=== PATIENT | male | born 1955 | race Caucasian/White ===

== ENCOUNTER → 2020-11-16 10:29 | Emergency (ER) | payer MEDICARE, SELFPAY | END | disposition left against medical advice (07) | PROVIDERS: Emergency Provider Internal Medicine Hematology & Oncology | DX: Z53.21 Procedure and treatment not carried out due to patient leaving prior to being seen by health care provider (principal) | CPT/HCPCS: 99199 ==

== ENCOUNTER 2021-01-07 13:02 | Outpatient (CLI) | payer MEDICARE, SELFPAY ==
--- NOTE | ~2021-01-07 | CT_ITS ---
EXAMINATION: CT lung screening DATE: 01/07/2021 13:31 INDICATION: Personal history of tobacco dependence, current smoker with 75 pack year history TECHNIQUE: Computed tomography (CT) of the chest was performed without intravenous contrast. The dose -length product (DLP) was 88.71 mGy-cm. Automated exposure control and iterative reconstruction techn ique were employed. COMPARISON: None FINDINGS: There is mild emphysema. The lungs are free of acute opacities. There is no pleural effusio n or pneumothorax. No pathologically enlarged thoracic lymph nodes are identified. The heart size is normal. Calcified coronary artery atherosclerosis is noted. No suspicious pulmonary nodules are ident ified. There is moderate thoracic spondylosis. IMPRESSION: 1. Lung-RADS category 1: Negative. Continue annual screening with noncontrast low-dose chest CT in 12 months. Reviewed, dictated and finalized at location A. IMPRESSION: 1. Lung-RADS category 1: Negative. Continue annual screening with noncontrast l ow-dose chest CT in 12 months.
--- NOTE | ~2021-01-07 | CT_ITS ---
EXAMINATION: CT abdomen pelvis w con INDICATION: Nausea, constipation, and weight loss TECHNIQUE: Computed tomographic images of the abdomen and pelvis were obtained after the administrati on of 100 cc of Omnipaque 350 intravenous contrast. The dose-length product (DLP) was 291.87 mGy-cm. Automated exposure control and iterative reconstruction technique were employed. COMPARISON: 03/06/2017 FINDINGS: The lung bases are clear. The heart size is normal. The gallbladder is surgically absent. T he liver, spleen, pancreas, and adrenal glands are normal. Cysts of the kidneys measure up to 2.9 cm on the left. A circumaortic left renal vein is noted. There is calcified atherosclerosis of the aorta and many of the other arteries. No pathologically enlarged abdominal or pelvic lymph nodes are ident ified. A moderate volume of colonic stool is present. Colonic diverticulosis is present without evide nce of diverticulitis. There is severe lumbar spondylosis. IMPRESSION: 1. No CT correlate for the patient's symptoms. Reviewed, dictated and finalized at location A.
== END 2021-01-07 13:03 | disposition home or self-care (01) ==
LOC: ANHIMG 13:08
PROVIDERS: PCP Internal Medicine; Visit Provider Physician Assistant
DX: Z12.2 Encounter for screening for malignant neoplasm of respiratory organs (principal); R10.32 Left lower quadrant pain; Z87.891 Personal history of nicotine dependence; M47.816 Spondylosis without myelopathy or radiculopathy, lumbar region
CPT/HCPCS: 71250; 71271; 74177; Q9967

== ENCOUNTER 2021-03-17 08:01 | Outpatient (CLI) | payer MEDICARE, SELFPAY ==
--- NOTE | ~2021-03-17 | CT_ITS ---
EXAMINATION: CT abdomen pelvis w con DATE: 03/17/2021 08:32 INDICATION: Unspecified abdominal pain. TECHNIQUE: Computed tomography (CT) of the abdomen and pelvis was performed with 100 mL Omnipaque 350 intravenous contrast. Automated exposure control and iterative reconstruction technique were employe d. The dose-length product was 458.88 mGy-cm. COMPARISON: CT abdomen and pelvis 01/07/2021, 03/06/2017 FINDINGS: The visualized portions of the lung bases demonstrate minimal atelectasis. No pleural effus ion. The heart size is normal. No pericardial effusion. The liver is normal. There are changes of cho lecystectomy. There is a 6 mm cyst in the spleen. A calcification in the pancreas is consistent with chronic pancreatitis. The right adrenal gland is normal. There is chronic thickening of left adrenal gland, likely benign. There are cysts in the kidneys measuring up to 2.6 cm on the left. There is div erticulosis of the colon without evidence of diverticulitis. The appendix is normal. There are no pat hologically enlarged lymph nodes. There is no free intraperitoneal fluid. The prostate is mildly enla rged. There is dextroscoliosis and severe spondylosis of lumbar spine. IMPRESSION: 1. No etiology for the patient's symptoms. Reviewed, dictated and finalized at location B. ROL CHEMIST
[2021-03-17 08:26] LABS: Estimated Glomerular Filt Rate > 60
== END 2021-03-17 08:02 | disposition home or self-care (01) ==
LOC: ANHIMG 08:02
PROVIDERS: PCP Physician Assistant; Visit Provider Physician Assistant
DX: R10.9 Unspecified abdominal pain (principal)
CPT/HCPCS: 74177; Q9967

== ENCOUNTER 2021-04-26 00:32 | Day surgery (SDC) | payer MEDICARE, SELFPAY ==
[2021-04-15 15:34] VITALS: BMI 17.9
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
[2021-04-26 12:29] VITALS: BP 130/53; PULSE 66; RESP 18; TEMP 36.5; O2SAT 98
[2021-04-26] MEDS: LACTATED RINGERS 1,000 ML 150 ML IV CONT (12:40)
--- NOTE | 2021-04-26 12:51 | P.PNAN_ITS ---
Anes - Initial Pre Proc Eval Procedure: Operation Date: 04/26/21 13:30 Proposed Procedures p Esophagogastroduodenoscopy & Colonoscopy - Woo Paula MD Date/Time: 04/26/21 12:51 Surgeon: Woo Paula MD Pre Op Diagnosis: abnormal weight loss, nausea Patient Data Age: 66 Gender: M Height: 1.93 m Weight: 71.8 kg Last Vital Signs Temp 36.5 C 04/26/21 12:29 Pulse 66 04/26/21 12:29 Resp 18 04/26/21 12:29 BP 130/53 L 04/26/21 12:29 Pulse Ox 98 04/26/21 12:29 Allergies Allergy/AdvReac Type Severity Reaction Status Date / Time No Known Drug Allergies Allergy Unknown [email or web address] Verified 04/26/21 12:27 Home Medications Medication Instructions Recorded Confirmed Type atorvastatin 40 mg tablet 40 mg PO DAILY 01/01/21 04/15/21 History carbidopa 25 mg-levodopa 100 mg 1 tablet PO QID 01/01/21 04/15/21 History disintegrating tablet cholecalciferol (vitamin D3) 10 10 mcg PO DAILY 01/01/21 04/15/21 History mcg (400 unit) capsule lisinopril 20 mg tablet 20 mg PO DAILY 01/01/21 04/15/21 History omeprazole 40 mg capsule,delayed 40 mg PO DAILY 01/01/21 04/15/21 History release vitamin B complex 1 tablet PO DAILY 01/01/21 04/15/21 History gabapentin 300 mg capsule 300 mg PO TID #90 cap 04/09/21 04/15/21 Rx sucralfate [Carafate] 1 g PO QID 04/15/21 04/15/21 History hyoscyamine sulfate 0.125 mg tablet 0.125 mg PO QID PRN #120 tablet 04/19/21 Rx Patient hx anesthesia problems: none Family hx anesthesia problems: none Results Review: All pre-operative results and documents have been reviewed as part of the pre-operative evaluation. [facility] Past Medical History Medical History (Updated 04/26/21 @ 07:42 by Jonathan Khalil DO) Emphysema lung Hyperlipidemia Hypertension Parkinsons disease Family History Family History Father Hypertension Cancer Mother Cancer Sibling Asthma Social History Social History Smoking packs per day: 1.5 Smoking cigarettes per day: 30.0 Years smoked: 45 Smoking pack-years: 67.50 Smoking status: Current every day smoker Tobacco type: cigarettes Alcohol intake: never Substance use: current Substance use type: marijuana Other substance usage details: medical Anes - Eval Final PreProcedure Day of Procedure 04/26/21 12:51 Patient weight: thin Heart: regular rate and rhythm Lungs: clear to auscultation and normal air movement Airway: Mallampati scale class II Neurological: alert and oriented Last oral intake: >/= 8 hours ASA classification: III Emergent: no Anesthetic plan: proceed Anesthesia type and monitoring: general GIVS and standard monitoring Results Review: All pre-operative results and documents have been reviewed as part of the pre-operative evaluation. Informed Consent: The patient's anesthetic plan and its attendant risks and benefits were discussed with the patient/family/POA. Questions were solicited and answers provided to the satisfaction of the patient/family/POA.
[2021-04-26 13:37] VITALS: BP 131/74; PULSE 78; RESP 18; O2SAT 100
[2021-04-26 13:47] VITALS: BP 135/61; PULSE 70; RESP 18; O2SAT 100
[2021-04-26 13:57] VITALS: BP 144/45; PULSE 65; RESP 18; O2SAT 100
== END 2021-04-26 14:17 | disposition home or self-care (01) ==
PROVIDERS: PCP Physician Assistant; Visit Provider Internal Medicine Gastroenterology
PROC: 0DJ08ZZ Inspection of Upper Intestinal Tract, Via Natural or Artificial Opening Endoscopic (ICD-10-PCS; CPT 43235; principal; 2021-04-26 13:30)
DX: Z12.11 Encounter for screening for malignant neoplasm of colon (principal); K57.30 Diverticulosis of large intestine without perforation or abscess without bleeding; K22.70 Barrett's esophagus without dysplasia; R10.814 Left lower quadrant abdominal tenderness; R63.4 Abnormal weight loss; J43.9 Emphysema, unspecified; I10 Essential (primary) hypertension; G20 Parkinson's disease; E78.5 Hyperlipidemia, unspecified; F17.210 Nicotine dependence, cigarettes, uncomplicated; F12.90 Cannabis use, unspecified, uncomplicated; Z68.1 Body mass index [BMI] 19.9 or less, adult
CPT/HCPCS: 43239; G0121; 88305; J2704; J7120

== ENCOUNTER 2021-10-06 09:56 | Emergency (ER) | payer MEDICARE, SELFPAY ==
--- NOTE | ~2021-10-06 | CT_ITS ---
EXAMINATION: CT abdomen pelvis w con DATE: 10/06/2021 11:40 INDICATION: Lower abdominal pain TECHNIQUE: Computed tomography (CT) of the abdomen and pelvis was performed with 100 mL Omnipaque-300 intravenous contrast. Automated exposure control and iterative reconstruction technique were employe d. The dose-length product was 230.49 mGy-cm. COMPARISON: 03/17/2021 FINDINGS: Lung bases are clear. Heart size is normal. No pericardial or pleural effusion. Cholecystectomy clips at the gallbladder fossa. Liver, spleen, pancreas, bilateral adrenal glands are normal. Bilateral re nal cysts measuring 3.1 cm on the left and 1.2 cm on the right. There is prominent sigmoid diverticul osis without adjacent inflammatory change to suggest diverticulitis. Small bowel and appendix are nor mal. No bowel obstruction. Bladder is distended. No free intraperitoneal gas or fluid. No pathologica lly enlarged abdominal or pelvic lymphadenopathy. 15 degree thoracolumbar dextroscoliosis with severe lumbar spondylosis. IMPRESSION: 1. No acute intra-abdominal/pelvic process. Reviewed, dictated and finalized at location A.
[2021-10-06 10:00] VITALS: BP 117/59; PULSE 80; RESP 16; TEMP 36.6; O2SAT 100
--- NOTE | 2021-10-06 10:05 | ED.ABDPAIN ---
HPI - Abdominal Pain General Chief Complaint: Abdominal Pain Stated Complaint: burning in stomach, cant eat, lost 8 lbs Time Seen by Provider: 10/06/21 10:05 History of Present Illness HPI narrative: The patient is a 66-year-old male with a history of chronic abdominal pain, constipation presenting to the emergency department for evaluation of diffuse abdominal pain which described as burning in nature, cramping in nature throughout his abdomen. Patient denies radiation to the back. He denies fever, chills, he reports nausea without vomiting. He reports decreased oral intake secondary to sensation of fullness. Patient has longstanding history of this per chart review. I reviewed pain management notes from Dr. Moreno from [facility] which the patient was recently seen 2 weeks ago. He has followed with pain management for this and is currently weaned himself off of opiate medications but continues taking Lyrica which offers him minimal improvement in his symptoms. Patient also states that he was recently diagnosed with diverticulitis and placed on oral antibiotics which she finished course of. Patient denies any diarrhea, reports chronic constipation but states that he did have a bowel movement yesterday with the use of oral magnesium citrate. Patient denies any dysuria or hematuria. He reports an unintentional 8 pound weight loss secondary to decreased oral intake. From review of his primary care physician's notes, he has had malignancy work-up in the past which has been negative. Related Data Home Medications Medication Instructions Recorded Confirmed carbidopa 25 mg-levodopa 100 mg 1 tablet PO QID 01/01/21 09/08/21 disintegrating tablet cholecalciferol (vitamin D3) 10 10 mcg PO DAILY 01/01/21 09/08/21 mcg (400 unit) capsule vitamin B complex 1 tablet PO DAILY 01/01/21 09/08/21 Lactobacillus acidophilus 10 10,000 mmu cells PO DAILY 07/28/21 09/08/21 billion cell capsule gabapentin 400 mg capsule 400 mg PO TID 07/28/21 09/08/21 hydrocodone 7.5 mg-acetaminophen 1 tablet PO Q8H PRN Pain, Mild 07/28/21 09/08/21 325 mg tablet lactulose 10 gram/15 mL (15 mL) 10 g PO DAILY 07/28/21 09/08/21 oral solution nicotine 21 mg/24 hr daily 1 patch transdermal DAILY 07/28/21 09/08/21 transdermal patch tamsulosin 0.4 mg capsule 0.4 mg PO DAILY 07/28/21 09/08/21 Allergies Allergy/AdvReac Type Severity Reaction Status Date / Time No Known Drug Allergies Allergy Unknown [email or web address] Verified 10/06/21 10:10 Review of Systems Review of Systems: CONSTITUTIONAL: Denies fever, chills, or sweats. EYES: Denies visual changes, redness, or discharge. ENT: Denies rhinorrhea, congestion, sore throat, or otalgia. CARDIOVASCULAR: Denies chest pain, palpitations, or edema. RESPIRATORY: Denies cough or dyspnea. GASTROINTESTINAL: Reports abdominal pain, reports chronic constipation GENITOURINARY: Denies dysuria or hematuria. SKIN: Denies rash or itching. MUSCULOSKELETAL: Denies back pain, joint pain, or myalgia. NEUROLOGIC: Denies headache, numbness, or weakness. [facility] Past Medical History Medical History Dystonia Emphysema lung Hepatitis C Hyperlipidemia Hypertension Hypertension Ilioinguinal neuralgia of left side Left flank pain Need for hepatitis C screening test Parkinsons disease Tobacco use Surgical History Surgical History History of hernia surgery 2020 Hx laparoscopic cholecystectomy 2020 Family History Family History Father Hypertension Mother No problems noted. Sibling Asthma Other Diabetes mellitus Lung cancer Lymph node cancer Social History Social History Smoking packs per day: 1.5 Smoking cigarettes per day: 30.0 Years smoked: 45 Smoking pack-years: 67.50 Smoking status: Current every day smoker Tobacco ty
[2021-10-06 10:14] LABS: Basophils Percent Auto 0.3 % (0.2-1.2); Eosinophils Absolute Auto 0.2 K/mm3 (0-0.3); Eosinophils Percent Auto 2.6 % (0-4.4); Hematocrit 37.9 % (42.0-52.0); Hemoglobin 12.9 g/dL (14.0-18.0); Immature Granulocyte Absolute 0.02 K/mm3 (0.00-0.031); Immature Granulocyte Percent A 0.3 % (0-0.5); Lymphocytes Absolute Auto 2.64 K/mm3 (0.9-3.2); Lymphocytes Percent Auto 39.8 % (18.3-44.2); Mean Corpuscular Hemoglobin 32.5 pg (26-34); Mean Corpuscular Volume 95.5 fl (80-100); Mean Platelet Volume 11.3 fl (7.4-10.4); Monocytes Absolute Auto 0.7 K/mm3 (0.1-0.6); Monocytes Percent Auto 10.4 % (2.6-8.5); Neutrophils Absolute Auto 3.1 K/mm3 (1.3-6.7); Neutrophils Percent Auto 46.6 % (45.5-73.1); Platelet Count Result 214 k/mm3 (150-375); Red Blood Count 3.97 M/mm3 (4.6-6.20); Red Cell Distribution Width 13.1 % (11.5-14.5); White Blood Count 6.6 K/mm3 (4.5-10.0)
--- NOTE | 2021-10-06 10:20 | PC.NURSE ---
patient attempted to give urine sample without success at this time. Patient will attempt again later, declines straight cath at this time.
[2021-10-06 10:23] LABS: Alanine Aminotransferase 14 U/L (6-50); Albumin Level 5.4 g/dL (3.5-5.1); Alkaline Phosphatase 55 U/L (38-126); Anion Gap 13 mmol/L (8-16); Aspartate Amino Transferase 19 U/L (17-59); Bilirubin,Total 1.5 mg/dL (0.2-1.3); Blood Urea Nitrogen 57 mg/dL (9-20); Calcium 9.1 mg/dL (8.4-10.2); Carbon Dioxide 21 mmol/L (22-30); Chloride 89 mmol/L (98-107); Estimated Glomerular Filt Rate 41; Glucose 114 mg/dL (65-110); Lipase 78 U/L (23-300); Potassium 4.3 mmol/L (3.4-5.0); Sodium 123 mmol/L (137-145)
[2021-10-06] MEDS: SODIUM CHLORIDE 0.9% IV 1,000 ML 999 ML IV CONT ×2 (10:39→11:57)
[2021-10-06] MEDS: PANTOPRAZOLE SODIUM IV 40 MG VIAL IV PUSH (10:41)
[2021-10-06] MEDS: ONDANSETRON INJ 4 MG/2 ML VIAL IV PUSH (10:42)
[2021-10-06] MEDS: DICYCLOMINE HCL INJ 20 MG/2 ML VIAL IM (10:43)
[2021-10-06 11:05] LABS: Lactic Acid Reflex 0.7 mmol/L (0.7-2.0)
[2021-10-06 11:08] VITALS: BP 94/54; PULSE 64; RESP 14; O2SAT 98
[2021-10-06 11:37] LABS: SARS-CoV-2 RNA PCR Negative
[2021-10-06 11:47] LABS: Magnesium 3.7 mg/dL (1.6-2.3); Phosphorus 5.7 mg/dL (2.5-4.5)
[2021-10-06 12:04] LABS: Appearance Urine Clear (Clear); Bilirubin Urine Negative (Negative); Blood Urine Negative (Negative); Color Urine Yellow (Yellow); Glucose Urine UA Negative (Negative); Ketones Urine Negative (Negative); Leukocyte Esterase Ur Negative LEU/UL (Negative); Nitrate Urine Negative (Negative); Protein Urine Negative (Negative); Specific Grav Ur <= 1.005 (1.001-1.035); Urobilinogen Urine 0.2 mg/dL (<2.0); pH Urine 5.5 (5.0-9.0)
[2021-10-06 12:09] LABS: Add Urine Microscopic? NO
[2021-10-06] MEDS: ACETAMINOPHEN 500 MG TABLET 1000 MG PO (12:43)
[2021-10-06 13:19] LABS: Anion Gap 8 mmol/L (8-16); Blood Urea Nitrogen 48 mg/dL (9-20); Calcium 8.1 mg/dL (8.4-10.2); Carbon Dioxide 21 mmol/L (22-30); Chloride 97 mmol/L (98-107); Estimated Glomerular Filt Rate 51; Glucose 92 mg/dL (65-110); Potassium 4.2 mmol/L (3.4-5.0); Sodium 126 mmol/L (137-145)
[2021-10-06 14:00] VITALS: BP 105/53; PULSE 66; RESP 16; O2SAT 100
[2021-10-06 14:20] VITALS: BP 106/58; RESP 20; O2SAT 99
== END 2021-10-06 14:25 | disposition home or self-care (01) ==
PROVIDERS: Emergency Provider Emergency Medicine; PCP Internal Medicine
DX: E86.0 Dehydration (principal); E87.1 Hypo-osmolality and hyponatremia; Z20.822 Contact with and (suspected) exposure to COVID-19; I10 Essential (primary) hypertension; G20 Parkinson's disease; E78.5 Hyperlipidemia, unspecified; F17.210 Nicotine dependence, cigarettes, uncomplicated
CPT/HCPCS: 36415; 74177; 80048; 80053; 81003; 83605; 83690; 83735; 84100; 85025; 96361; 96372; 96374; 96375; 99284; A9270; C9113; C9803; J0500; J2405; J7030; Q9967; U0003; U0005